=== PATIENT | male | born 1965 | race African-American/Black ===

== ENCOUNTER 2016-06-23 00:35 | Emergency (ER) | payer BC ==
[2016-06-23] MEDS ORDERED: ONDANSETRON 4 MG VIAL ONE (01:01)
[2016-06-23] MEDS ORDERED: MORPHINE 4 MG/ML SYR ONE (01:02)
[2016-06-23] MEDS ORDERED: SODIUM CHLORIDE 0.9% 1,000 ML ONE (01:02)
[2016-06-23] MEDS ORDERED: DILAUDID 1 MG/ML AMP ONE (03:29)
[2016-06-23] MEDS ORDERED: Ibuprofen 400 MG TAB ONE (05:12)
== END 2016-06-23 05:18 | disposition home or self-care (01) ==
LOC: ER 00:35
CPT/HCPCS: 36415; 71010; 74176; 80053; 81001; 83605; 83690; 85025; 87040; 96361; 96374; 96375